=== PATIENT | female | born 1985 | race Caucasian/White ===

== ENCOUNTER 2016-08-21 13:57 | Inpatient (IN) | payer OTHER ==
[2016-08-21] VITALS (15 sets, daily range): BP systolic 131–188; BP diastolic 73–106
[~2016-08-21] VITALS: Ht 177.8 cm; Wt 112.0 kg
[~2016-08-21 13:57] MED LIST: Motrin PO; TOBREX5 ML BOTH EYES
[2016-08-21 15:15] LABS: MCH 32.6 PG (29.0-34.0); MCHC 35.9 G/DL (30.0-36.0); MCV 90.9 FL (83-99); MEAN PLAT.VOLUME 10.9 uM^3 (9.5-12.4); PLATELET COUNT 192 K/uL (156-360); RBC DIS.WIDTH-CV 12.4 % (11.8-14.6); RBC DIS.WIDTH-SD 40.8 % (39-53); RED BLOOD COUNT 3.74 M/uL (3.80-5.20); WHITE BLOOD COUNT 10.1 K/uL (4.1-10.2)
[2016-08-21 15:25] LABS: EOSINOPHIL (%) 0.7 % (0-5); EOSINOPHIL COUNT 0.1 K/uL (0-0.3); IMMATURE GRANULOCYTE (%) 0.4 % (0.0-0.7); LYMPHOCYTE COUNT 1.9 K/uL (1.0-2.8); MONOCYTE (%) 6.2 % (3-12); MONOCYTE COUNT 0.6 K/uL (0-0.8); NEUTROPHIL COUNT 7.5 K/uL (1.8-6.4)
[2016-08-21 15:26] LABS: FIBRINOGEN 406 MG/DL (160-450); INTER. NORMALIZED RATIO 0.9; PTT 27.5 (25-32)
[2016-08-21 15:42] LABS: PROTHROMBIN TIME 9.1 (9.2-11.2)
[2016-08-21 15:49] LABS: ANION GAP 12 MEQ/L (2-14); CHLORIDE 105 MEQ/L (99-109); POTASSIUM 4.5 MEQ/L (3.7-5.4); SAMPLE HEMOLYSIS CHECK 0; SAMPLE ICTERIC CHECK 0; SAMPLE LIPEMIA CHECK 0; SODIUM 137 MEQ/L (136-147); TOTAL BILIRUBIN 0.3 MG/DL (0.0-1.0)
[2016-08-21 15:55] LABS: ALKALINE PHOSPHATASE 151 IU/L (3-129); GFR ESTIMATE (CALCULATED) > 59 mL/min/; GLUCOSE 87 mg/dL (70-99); LACTATE DEHYDROGENASE 186 IU/L (20-246); UREA NITROGEN (BUN) 14 mg/dL (9-23); URIC ACID 6.5 mg/dL (3.1-9.2)
[2016-08-21] MEDS ORDERED: PRENATAL TABLE1 EAC3 PO (19:08)
[2016-08-22] VITALS (30 sets, daily range): BP systolic 127–177; BP diastolic 70–106
[2016-08-22 09:07] LABS: HEMATOCRIT 36.2 % (36.0-46.0); MCH 32.6 PG (29.0-34.0); MCHC 35.4 G/DL (30.0-36.0); MCV 92.1 FL (83-99); MEAN PLAT.VOLUME 11.1 uM^3 (9.5-12.4); PLATELET COUNT 184 K/uL (156-360); RBC DIS.WIDTH-CV 12.3 % (11.8-14.6); RBC DIS.WIDTH-SD 41.9 % (39-53); RED BLOOD COUNT 3.93 M/uL (3.80-5.20); WHITE BLOOD COUNT 9.9 K/uL (4.1-10.2)
[2016-08-22 09:58] LABS: ALKALINE PHOSPHATASE 159 IU/L (3-129); ANION GAP 10 MEQ/L (2-14); CHLORIDE 105 MEQ/L (99-109); GFR ESTIMATE (CALCULATED) > 59 mL/min/; POTASSIUM 3.9 MEQ/L (3.7-5.4); SAMPLE HEMOLYSIS CHECK 0; SAMPLE ICTERIC CHECK 0; SAMPLE LIPEMIA CHECK 0; SODIUM 134 MEQ/L (136-147); TOTAL BILIRUBIN 0.3 MG/DL (0.0-1.0); UREA NITROGEN (BUN) 9 mg/dL (9-23)
[2016-08-22 10:02] LABS: GLUCOSE 113 mg/dL (70-99); MAGNESIUM 5.7 mg/dl (1.3-2.7)
[2016-08-23] VITALS (14 sets, daily range): BP systolic 117–171; BP diastolic 62–93
[2016-08-23 07:44] LABS: EOSINOPHIL (%) 0.4 % (0-5); HEMATOCRIT 31.1 % (36.0-46.0); IMMATURE GRANULOCYTE (%) 0.3 % (0.0-0.7); LYMPHOCYTE COUNT 1.7 K/uL (1.0-2.8); MCH 32.6 PG (29.0-34.0); MCV 93.1 FL (83-99); MEAN PLAT.VOLUME 10.8 uM^3 (9.5-12.4); MONOCYTE (%) 4.6 % (3-12); MONOCYTE COUNT 0.5 K/uL (0-0.8); NEUTROPHIL (%) 78.1 % (45-76); NEUTROPHIL COUNT 8.1 K/uL (1.8-6.4); PLATELET COUNT 176 K/uL (156-360); RBC DIS.WIDTH-CV 12.6 % (11.8-14.6); RBC DIS.WIDTH-SD 43.1 % (39-53); RED BLOOD COUNT 3.34 M/uL (3.80-5.20); WHITE BLOOD COUNT 10.4 K/uL (4.1-10.2)
[2016-08-24 00:41] VITALS: BP 136/80
[2016-08-24 03:44] VITALS: BP 128/74
[2016-08-24 08:10] VITALS: BP 131/80
[2016-08-24 11:33] VITALS: BP 135/88
[2016-08-24] MEDS ORDERED: Tylenol Extra Streng PO (12:14)
[2016-08-24] MEDS ORDERED: LABETALOL HCL200 MG PO (12:14)
== END 2016-08-24 13:21 | disposition home or self-care (01) | DRG 775 ==
LOC: LDRP-OP 13:57 → 2WEST 13:58 → LDRP-OP 10-06 12:42
PROVIDERS: Advanced Practice Midwife; Obstetrics & Gynecology
DX: O14.14 Severe pre-eclampsia complicating childbirth (principal); O99.284 Endocrine, nutritional and metabolic diseases complicating childbirth; E05.00 Thyrotoxicosis with diffuse goiter without thyrotoxic crisis or storm; O99.214 Obesity complicating childbirth; E66.9 Obesity, unspecified; Z68.31 Body mass index [BMI] 31.0-31.9, adult; Z87.891 Personal history of nicotine dependence; Z3A.38 38 weeks gestation of pregnancy; Z37.0 Single live birth
CPT/HCPCS: 80053; 82570; 83615; 83735; 84156; 84550; 85025; 85027; 85384; 85610; 85730; 86850; 86900; 86901; 87086; G0378; J3475; J7120